=== PATIENT | female | born 2005 | race Caucasian/White ===

== ENCOUNTER 2024-05-17 12:47 | Outpatient (CLI) | payer OTHER ==
[2024-05-17 13:31] LABS: Hematocrit 38.9 % (34.9-44.5)
[2024-05-17 13:44] LABS: BHCG - Serum Negative (NEGATIVE); Pregs Control Background? CLEAR/WHITE (CLR/WHITE); Pregs Control Bar Appear? YES (CONTROL BAR)
== END 2024-05-17 12:48 | disposition home or self-care (01) ==
LOC: CSHLAB 12:47
PROVIDERS: ATTEND Otolaryngology Plastic Surgery within the Head & Neck
DX: Z01.812 Encounter for preprocedural laboratory examination (principal); J34.3 Hypertrophy of nasal turbinates; J32.4 Chronic pansinusitis; J33.9 Nasal polyp, unspecified
CPT/HCPCS: 84703; 85014

== ENCOUNTER 2024-05-23 07:10 | Day surgery (SDC) | payer OTHER ==
[2024-05-17 13:10] VITALS: BMI 19.2
[2024-05-23] MEDS ORDERED: PROPOFOL 20 ML ONE (09:17)
[2024-05-23] MEDS ORDERED: fentaNYL 50 mcg/mL 1 mL Vial ONE (09:17)
[2024-05-23] MEDS ORDERED: Dexamethasone 20 MG/5 ML VIAL ONE (09:18)
[2024-05-23] MEDS ORDERED: Ondansetron PF 4 MG/2 ML Vial ONE (09:18)
[2024-05-23] MEDS ORDERED: Lidocaine 1% PF 5 ML VIAL ONE (09:18)
[2024-05-23] MEDS ORDERED: AFRIN NASAL MIST 15 ML BOT ONE (09:41)
[2024-05-23] MEDS ORDERED: Mupirocin 2% Ointment 22 GM Tube ONE (09:42)
[2024-05-23] MEDS ORDERED: Lidocaine 1% w/Epinephrine 1:200K 30 ML VIAL ONE (09:42)
[2024-05-23] MEDS ORDERED: Midazolam HCl 2 mg/2 ml Vial ONE (09:56)
== END 2024-05-23 11:56 | disposition home or self-care (01) ==
LOC: CSHSDC 07:10
PROVIDERS: ATTEND Otolaryngology Plastic Surgery within the Head & Neck
PROC: 09TR8ZZ Resection of Left Maxillary Sinus, Via Natural or Artificial Opening Endoscopic (ICD-10-PCS; principal; 2024-05-23)
PROC: 09TW8ZZ Resection of Right Sphenoid Sinus, Via Natural or Artificial Opening Endoscopic (ICD-10-PCS; principal; 2024-05-23)
PROC: 09TT8ZZ Resection of Left Frontal Sinus, Via Natural or Artificial Opening Endoscopic (ICD-10-PCS; principal; 2024-05-23)
PROC: 09TS8ZZ Resection of Right Frontal Sinus, Via Natural or Artificial Opening Endoscopic (ICD-10-PCS; principal; 2024-05-23)
PROC: 09TL8ZZ Resection of Nasal Turbinate, Via Natural or Artificial Opening Endoscopic (ICD-10-PCS; principal; 2024-05-23)
PROC: 09TX8ZZ Resection of Left Sphenoid Sinus, Via Natural or Artificial Opening Endoscopic (ICD-10-PCS; principal; 2024-05-23)
PROC: 09TU8ZZ Resection of Right Ethmoid Sinus, Via Natural or Artificial Opening Endoscopic (ICD-10-PCS; principal; 2024-05-23)
PROC: 09TV8ZZ Resection of Left Ethmoid Sinus, Via Natural or Artificial Opening Endoscopic (ICD-10-PCS; principal; 2024-05-23)
PROC: 09TQ8ZZ Resection of Right Maxillary Sinus, Via Natural or Artificial Opening Endoscopic (ICD-10-PCS; principal; 2024-05-23)
DX: J32.4 Chronic pansinusitis (principal); J34.3 Hypertrophy of nasal turbinates; J33.0 Polyp of nasal cavity; J34.89 Other specified disorders of nose and nasal sinuses
CPT/HCPCS: J1100; J2250; J2405; J2704; J3010